=== PATIENT | male | born 1945 | race African-American/Black ===

== ENCOUNTER 2016-10-27 10:28 | Emergency (ER) | payer MEDICARE ==
[2016-10-27 10:23] LABS: BASOPHILS 0 %; EOSINOPHILS 0 %; HEMATOCRIT 39.6 % (40.0-51.0); HEMOGLOBIN 13.4 g/dL (13.6-17.8); IMMATURE GRANULOCYTES 0.3 %; IMMATURE GRANULOCYTES ABSOLUTE 0.02 10/3/uL (0.0-0.11); LYMPHOCYTES 22.4 %; LYMPHOCYTES ABSOLUTE 1.52 10/3/uL (0.67-4.30); MANUAL DIFF NO %; MEAN CORPUS HGB CONC 33.8 g/dL (32.0-36.0); MEAN CORPUSCULAR HEMOGLOB 31.1 pg (26.0-34.0); MEAN CORPUSCULAR VOLUME 91.9 fL (80-100); MONOCYTES 7.8 %; MONOCYTES ABSOLUTE 0.53 10/3/uL (0.21-1.20); NEUTROPHILS 69.5 %; NEUTROPHILS ABSOLUTE 4.72 10/3/uL (2.02-8.40); PLATELET COUNT 172 10/3/uL (150-400); RBC DISTRIBUTION WIDTH 13.7 % (12.0-16.0); RED CELL COUNT 4.31 10/6/uL (4.7-6.1); WHITE BLOOD CELLS 6.8 10/3/uL (4.5-10.5)
[~2016-10-27 10:28] MED LIST: ACET500CAP PO; ATEN25 PO; CELEXA20 PO; CRESTOR40 MG PO; FAMILY TO BRING MEDS; HCTZ50B PO; HYDROCHLOROT50 MG PO; HYT5 PO; HYTRIN10 MG PO; KEPPRA1000 MG PO; KEPPRA500 PO; LISINOPRIL40 MG PO; PRILO PO; T PO; TIAZA3 PO; [UNRECOGNIZED DRUG - REMARK]
[2016-10-27 10:40] LABS: BUN (BLOOD UREA NITROGEN) 25 MG/DL (6-23); CALCIUM, SERUM 9.7 MG/DL (8.5-10.4); CHLORIDE, SERUM 108 MMOL/L (96-112); CO2 (CARBON DIOXIDE) 28 MMOL/L (24-34); CREATININE 1.55 MG/DL (0.70-1.30); GFR AFRICAN AMERICAN 51 ML/MIN (>=60); GFR NON AFRICAN AMERICAN 44 ML/MIN (>=60); GLUCOSE, SERUM 96 MG/DL (60-99); POTASSIUM, SERUM 3.8 MMOL/L (3.5-5.3); SALICYLATE 2.8 MG/DL (-); SGOT(AST) 31 U/L (5-40); SGPT(ALT) 23 U/L (5-65); TOTAL BILIRUBIN 0.8 MG/DL (0-1.2); TOTAL PROTEIN 7.2 G/DL (6.0-8.5)
[2016-10-27 10:41] LABS: A/G RATIO 1.1 (0.7-1.9); ALBUMIN 3.8 G/DL (3.5-5.0); ALCOHOL < 10 MG/DL (0); ALKALINE PHOSPHATASE 90 U/L (45-117); GLOBULIN 3.4 G/DL (2.5-4.1); SODIUM, SERUM 143 MMOL/L (135-148)
[2016-10-27 10:42] LABS: ACETAMINOPHEN LEVEL (TYLENOL) < 2.0 MCG/ML (10.0-20.0)
[2016-10-27] MEDS ORDERED: PRILO PO (11:24)
[2016-10-27] MEDS ORDERED: KEPPRA750 MG PO (11:24)
[2016-10-27] MEDS ORDERED: HYDROCHLOROT50 MG PO (11:24)
[2016-10-27] MEDS ORDERED: CELEXA40 MG PO (11:25)
[2016-10-27] MEDS ORDERED: ATEN50 PO (11:25)
[2016-10-27] MEDS ORDERED: TRAZ50 PO (11:25)
[2016-10-27] MEDS ORDERED: HYT5 PO (11:25)
[2016-10-27] MEDS ORDERED: NIACIN 500 PO (11:26)
[2016-10-27] MEDS ORDERED: FERROUS GLUC324 MG PO (11:26)
[2016-10-27] MEDS ORDERED: ACET500CAP PO (11:26)
== END 2016-10-27 16:54 | disposition home or self-care (01) ==
LOC: ER 10:28
PROVIDERS: Emergency Medicine
DX: K92.0 Hematemesis (principal); F10.20 Alcohol dependence, uncomplicated; Y90.0 Blood alcohol level of less than 20 mg/100 ml; I12.9 Hypertensive chronic kidney disease with stage 1 through stage 4 chronic kidney disease, or unspecified chronic kidney disease; N18.9 Chronic kidney disease, unspecified; Z86.73 Personal history of transient ischemic attack (TIA), and cerebral infarction without residual deficits; F17.200 Nicotine dependence, unspecified, uncomplicated; Z95.5 Presence of coronary angioplasty implant and graft; Z88.8 Allergy status to other drugs, medicaments and biological substances; Z79.899 Other long term (current) drug therapy
CPT/HCPCS: 36415; 71010; 80053; 80307; 83690; 85025; 86850; 86900; 86901; 93005; 96374; 96375; 99285; C9113; J2405